=== PATIENT | female | born 1990 | race Caucasian/White ===

== ENCOUNTER 2021-09-28 16:48 | Emergency (ER) | payer SELFPAY ==
[~2021-09-28] VITALS: Ht 165.1 cm; Wt 65.3 kg
[~2021-09-28 16:48] MED LIST: TRAM50TA1 PO
[2021-09-28 16:56] VITALS: BP 148/105
[2021-09-28] MEDS ORDERED: KETOROLAC 30 MG/ML VIAL IM ONE (17:00)
[2021-09-28] MEDS ORDERED: DEXAMETHASONE 10 MG/ML VIAL IM ONE (17:00)
[2021-09-28] MEDS ORDERED: FAMOTIDINE 20 MG TAB PO ONE (17:00)
--- NOTE | 2021-09-28 17:38 | NUR ---
PT AMBULATED TO BATHROOM WITH STEADY GAIT
[2021-09-28] MEDS ORDERED: IBUP-2213 PO (19:16)
[2021-09-28] MEDS ORDERED: FAMO-90 PO (19:16)
[2021-09-28] MEDS ORDERED: PRED20TA5 PO (19:16)
[2021-09-28] MEDS ORDERED: EPIN1KIT31 IM (19:18)
[2021-09-28] MEDS ORDERED: LORazepam 1 MG TAB PO ONE (19:20)
--- NOTE | 2021-09-28 19:28 | NUR ---
Dr. López spoke with patient and explained results and treatment plans.
[2021-09-28 19:37] VITALS: BP 140/83
--- NOTE | 2021-09-28 19:37 | NUR ---
Patient discharged with v/s stable. Written and verbal after care instructions given and explained. Patient alert, oriented and verbalized understanding of instructions. Ambulatory with steady gait. All questions addressed prior to discharge. ID band removed. Patient advised to follow up with PMD. Rx of Epipen, Pepcid , Ibuprofen and Prednisone given. Patient educated on indication of medication including possible reaction and side effects. Opportunity to ask questions provided and answered.
== END 2021-09-28 19:37 | disposition home or self-care (01) ==
LOC: MED 16:48
DX: F45.8 Other somatoform disorders (principal); Z88.1 Allergy status to other antibiotic agents; Z79.899 Other long term (current) drug therapy
CPT/HCPCS: 96372; 99284; J1100; J1885

== ENCOUNTER 2022-11-18 23:20 | Emergency (ER) | payer OTHER, MEDICAID ==
[~2022-11-18] VITALS: Ht 165.1 cm; Wt 63.5 kg
[~2022-11-18 23:20] MED LIST changes: +EPIN1KIT31 IM; +FAMO-90 PO; +IBUP-2213 PO; +PRED20TA5 PO; +TRAM-748 PO; -TRAM50TA1 PO
[2022-11-18 23:30] VITALS: BP 116/65; PULSE 53; RESP 18; TEMP 98; O2SAT 98
== END 2022-11-18 23:40 ==
LOC: MED 23:20
DX: Z02.89 Encounter for other administrative examinations (principal); Z88.1 Allergy status to other antibiotic agents; Z79.899 Other long term (current) drug therapy; V89.2XXA Person injured in unspecified motor-vehicle accident, traffic, initial encounter; Y93.89 Activity, other specified; Y92.89 Other specified places as the place of occurrence of the external cause; Y99.8 Other external cause status
CPT/HCPCS: 99283

== ENCOUNTER 2023-01-24 06:07 | Emergency (ER) | payer SELFPAY ==
[~2023-01-24] VITALS: Ht 165.1 cm; Wt 63.5 kg
[2023-01-24 06:20] VITALS: BP 137/94; PULSE 106; RESP 17; TEMP 97.8; O2SAT 99
[2023-01-24] MEDS ORDERED: ONDANSETRON 4 MG/2 ML VIAL IVP ONE ×2 (06:55→08:35)
[2023-01-24] MEDS ORDERED: LORazepam 2 MG/ML VIAL IVP ONE ×2 (06:55→08:35)
[2023-01-24] MEDS ORDERED: LACTATED RINGERS 1,000 ML IV STA ×2 (06:55→08:32)
[2023-01-24 08:00] LABS: BASOPHILS # (AUTO) 0.1 K/uL (0.00-0.22); BASOPHILS % (AUTO) 1.7 % (0.0-2.0); EOSINOPHILS # (AUTO) 0.1 K/uL (0-0.4); EOSINOPHILS % (AUTO) 1.9 % (0.0-4.0); HEMATOCRIT 32.8 % (36-48); HEMOGLOBIN 10.7 g/dL (12.0-16.0); LYMPHOCYTES # (AUTO) 0.7 K/uL (2.5-16.5); LYMPHOCYTES % (AUTO) 15.5 % (20.5-51.1); MEAN CORPUSCULAR HEMOGLOBIN 29 pg (27-31); MEAN CORPUSCULAR HGB CONC 33 g/dL (33-37); MEAN CORPUSCULAR VOLUME 88.7 fL (80-94); MONOCYTES # (AUTO) 0.6 K/uL (0.8-1.0); MONOCYTES % (AUTO) 11.9 % (1.7-9.3); NEUTROPHILS # (AUTO) 3.3 K/uL (1.8-7.7); PLATELET COUNT (AUTO) 266 K/uL (140-450); RED BLOOD CELL COUNT(AUTO) 3.69 MIL/uL (4.20-5.40); RED CELL DISTRIBUTION WIDTH 17.8 % (11.6-13.7); WHITE BLOOD COUNT (AUTO) 4.8 K/uL (4.8-10.8)
[2023-01-24 08:26] LABS: ALANINE AMINOTRANSFERASE 50 U/L (12-78); ALBUMIN 3.9 g/dL (3.4-5.0); ALCOHOL, BLOOD < 3 mg/dL (<10); ALKALINE PHOSPHATASE 123 U/L (50-136); ANION GAP 16.1 (8-16); ASPARTATE AMINOTRANSFERASE 73 U/L (15-37); CARBON DIOXIDE 26.9 mmol/L (21-32); CHLORIDE 101 mmol/L (98-107); CREATININE 0.7 mg/dL (0.6-1.3); GFR ARICAN-AMERICAN 123 mL/min (>90); GFR NON ARICAN-AMERICAN 102 mL/min (>90); GLUCOSE 106 mg/dL (74-106); LIPASE 67 U/L (16-77); SODIUM SERUM 140 mmol/L (136-145); TOTAL BILIRUBIN 0.6 mg/dL (0.0-1.0); TOTAL PROTEIN, SERUM 8.4 g/dL (6.4-8.2); UREA NITROGEN, BLOOD 6 mg/dL (7-18)
[2023-01-24 09:16] VITALS: O2SAT 96
[2023-01-24] MEDS ORDERED: ONDA-188 SL (09:35)
[2023-01-24] MEDS ORDERED: LIB25 PO (09:35)
[2023-01-24 09:51] VITALS: BP 134/74; PULSE 90; RESP 14; TEMP 98.1; O2SAT 98
[2023-01-24 11:17] LABS: APPEARANCE,URINE CLEAR (CLEAR); BILIRUBIN,URINE 1+ (NEGATIVE); BLOOD, URINE NEGATIVE (NEGATIVE); COLOR,URINE YELLOW (YELLOW); LEUKOCYTE ESTERASE ,URINE NEGATIVE (NEGATIVE); NITRITE, URINE NEGATIVE (NEGATIVE); PROTEIN,URINE 2+ (NEGATIVE); UGLUCOSE NEGATIVE (NEGATIVE)
[2023-01-24 11:35] LABS: AMPHETAMINE, URINE POSITIVE ng/ml (NEG <=1000); BARBITURATE, URINE NEGATIVE ng/ml (NEG <=200); BENZODIAZEPINE, URINE NEGATIVE ng/mL (NEG <=200); CANNABINOID, URINE NEGATIVE ng/mL (NEG <=50); COCAINE, URINE NEGATIVE ng/mL (NEG <=300); OPIATE, URINE NEGATIVE ng/mL (NEG <=2000); PHENCYCLIDINE SCREEN,URINE NEGATIVE ng/mL (NEG <=25)
[2023-01-24 11:36] LABS: BACTERIA,URINE 0-2 /HPF (None Seen); ICTOTEST POSITIVE (NEGATIVE); RBC,URINE 0-5 /HPF (0-5); WBC,URINE 0-5 /HPF (0-5)
== END 2023-01-24 09:52 | disposition home or self-care (01) ==
LOC: MED 06:07
DX: F10.239 Alcohol dependence with withdrawal, unspecified (principal); R11.2 Nausea with vomiting, unspecified; Z88.8 Allergy status to other drugs, medicaments and biological substances; Z79.899 Other long term (current) drug therapy; Y90.9 Presence of alcohol in blood, level not specified
CPT/HCPCS: 36415; 71045; 80053; 80305; 81001; 81025; 83690; 84484; 85025; 93005; 96361; 96374; 96375; 96376; 99285; G0482; J2060; J2405; J7120

== ENCOUNTER 2023-03-25 09:19 | Emergency (ER) | payer SELFPAY ==
[~2023-03-25] VITALS: Ht 165.1 cm; Wt 59.0 kg
[~2023-03-25 09:19] MED LIST changes: +CHLO-836 PO; +ONDA-188 SL
[2023-03-25 09:28] VITALS: BP 144/77; PULSE 95; RESP 24; TEMP 97.1; O2SAT 100
[2023-03-25] MEDS ORDERED: ONDANSETRON 4 MG/2 ML VIAL IVP ONE (09:45)
[2023-03-25] MEDS ORDERED: MULTIVITAMIN 1 TAB PO ONE (09:45)
[2023-03-25] MEDS ORDERED: NACL 0.9% 1,000 ML IV ONE (09:45)
[2023-03-25] MEDS ORDERED: THIAMINE 100 MG TAB PO ONE (09:45)
[2023-03-25] MEDS ORDERED: DIAZEPAM PFS 10 MG/2 ML SYR IVP ONE (09:45)
[2023-03-25 10:08] LABS: BASOPHILS # (AUTO) 0.1 K/uL (0.00-0.22); BASOPHILS % (AUTO) 1.6 % (0.0-2.0); EOSINOPHILS # (AUTO) 0.1 K/uL (0-0.4); EOSINOPHILS % (AUTO) 1.3 % (0.0-4.0); HEMATOCRIT 33.1 % (36-48); HEMOGLOBIN 10.7 g/dL (12.0-16.0); LYMPHOCYTES # (AUTO) 1.4 K/uL (2.5-16.5); LYMPHOCYTES % (AUTO) 19.1 % (20.5-51.1); MEAN CORPUSCULAR HEMOGLOBIN 29 pg (27-31); MEAN CORPUSCULAR HGB CONC 32 g/dL (33-37); MEAN CORPUSCULAR VOLUME 88.3 fL (80-94); MONOCYTES # (AUTO) 0.7 K/uL (0.8-1.0); MONOCYTES % (AUTO) 8.9 % (1.7-9.3); NEUTROPHILS # (AUTO) 5.2 K/uL (1.8-7.7); NEUTROPHILS % (AUTO) 69.1 % (42.2-75.2); PLATELET COUNT (AUTO) 245 K/uL (140-450); RED BLOOD CELL COUNT(AUTO) 3.76 MIL/uL (4.20-5.40); RED CELL DISTRIBUTION WIDTH 19.9 % (11.6-13.7); WHITE BLOOD COUNT (AUTO) 7.6 K/uL (4.8-10.8)
[2023-03-25 10:18] LABS: ANION GAP 16.7 (8-16); CALCIUM 8.6 mg/dL (8.5-10.1); CARBON DIOXIDE 23.9 mmol/L (21-32); CREATININE 0.7 mg/dL (0.6-1.3); POTASSIUM 3.6 mmol/L (3.5-5.1)
[2023-03-25 10:22] LABS: ALANINE AMINOTRANSFERASE 34 U/L (12-78); ALBUMIN 3.1 g/dL (3.4-5.0); ALCOHOL, BLOOD < 3 mg/dL (<10); ALKALINE PHOSPHATASE 103 U/L (50-136); ASPARTATE AMINOTRANSFERASE 38 U/L (15-37); BILIRUBIN,DIRECT 0.3 mg/dL (0.0-0.3); LIPASE 33 U/L (16-77); TOTAL BILIRUBIN 0.8 mg/dL (0.0-1.0); TOTAL PROTEIN, SERUM 8.3 g/dL (6.4-8.2)
[2023-03-25 10:24] LABS: INR 1.09 (0.8-1.2); PARTIAL THROMBOPLASTIN TIME 24.9 secs (22-35.6); PROTHROMBIN TIME 11.4 secs (10.8-13.4)
[2023-03-25 10:44] LABS: APPEARANCE,URINE SL CLOUDY (CLEAR); BILIRUBIN,URINE 1+ (NEGATIVE); BLOOD, URINE NEGATIVE (NEGATIVE); COLOR,URINE YELLOW (YELLOW); LEUKOCYTE ESTERASE ,URINE NEGATIVE (NEGATIVE); NITRITE, URINE NEGATIVE (NEGATIVE); PROTEIN,URINE TRACE (NEGATIVE); UGLUCOSE NEGATIVE (NEGATIVE); UROBILINOGEN,URINE 0.2 EU/dL (0.2 - 1)
[2023-03-25 10:49] LABS: ICTOTEST POSITIVE (NEGATIVE)
[2023-03-25 10:50] LABS: BACTERIA,URINE 0-2 /HPF (None Seen); MUCUS,URINE None Seen /LPF (None Seen); RBC,URINE 0-5 /HPF (0-5); SQUAMOUS EPITHELIAL CELL,UR 0-3 (FEW) /LPF (0-3 (FEW)); WBC,URINE 0 /HPF (0-5)
[2023-03-25] MEDS ORDERED: chlordiazePOXIDE 25 MG CAP PO ONE (11:15)
[2023-03-25] MEDS ORDERED: CHLO-836 PO (12:12)
[2023-03-25 12:16] VITALS: BP 136/76; PULSE 74; RESP 19; O2SAT 98
[2023-03-25 12:25] LABS: AMPHETAMINE, URINE NEGATIVE ng/ml (NEG <=1000); BARBITURATE, URINE NEGATIVE ng/ml (NEG <=200)
[2023-03-25 12:26] LABS: BENZODIAZEPINE, URINE POSITIVE ng/mL (NEG <=200); CANNABINOID, URINE NEGATIVE ng/mL (NEG <=50); COCAINE, URINE NEGATIVE ng/mL (NEG <=300); OPIATE, URINE NEGATIVE ng/mL (NEG <=2000); PHENCYCLIDINE SCREEN,URINE POSITIVE ng/mL (NEG <=25)
== END 2023-03-25 12:17 | disposition home or self-care (01) ==
LOC: MED 09:19
DX: F10.239 Alcohol dependence with withdrawal, unspecified (principal); R11.2 Nausea with vomiting, unspecified; Z79.899 Other long term (current) drug therapy; Y90.9 Presence of alcohol in blood, level not specified
CPT/HCPCS: 36415; 71045; 80048; 80076; 80305; 81001; 81025; 83690; 83735; 84484; 84703; 85025; 85610; 85730; 93005; 96361; 96374; 96375; 99291; G0482; J2405; J3360; J7030; 99285